=== PATIENT | female | born 2000 | race Two or more races ===

== ENCOUNTER → 2024-06-24 | Outpatient (CLI) | payer MEDICAID, SELFPAY ==
--- NOTE | 2024-06-24 15:47 | XR_ITS ---
Examination: Wrist, right 3 views Technique: Wrist AP, oblique, lateral 3 views Date and time of exam: June 24, 2024 1553 hours INDICATIONS: Acute angulated comminuted fracture distal fifth metacarpal June 02, 2024 FINDINGS: Operative reduction internal fixation fracture fifth metacarpal Partial healing with satisfactory alignment Orthopedic pin satisfactory position IMPRESSION: Partial healing fracture fifth metacarpal with satisfactory alignment
--- NOTE | 2024-06-24 15:47 | XR_ITS ---
Examination: Hand, right 3 views Technique: Hand AP, oblique, lateral 3 views Date and time of exam: June 24, 2024 1553 hours Comparison June 02, 2024 INDICATIONS: Acute angulated fracture distal fifth metacarpal June 02, 2024, postop reduction internal fixation fracture FINDINGS: Operative reduction internal fixation fracture fifth metacarpal with partial healing and stable and satisfactory alignment Orthopedic pin satisfactory position IMPRESSION: Partial healing fracture fifth metacarpal with stable and satisfactory alignment
== END | disposition home or self-care (01) ==
DX: S62.396A Other fracture of fifth metacarpal bone, right hand, initial encounter for closed fracture (principal); X58.XXXA Exposure to other specified factors, initial encounter
CPT/HCPCS: 73110; 73130

== ENCOUNTER → 2024-07-21 | Outpatient (CLI) | payer MEDICAID, SELFPAY ==
--- NOTE | 2024-07-21 | XR_ITS ---
Examination: Hand, right 3 views Technique: Hand AP, oblique, lateral 3 views Date and time of exam: July 18 20,024 0743 hours INDICATIONS: Right hand surgery one month ago. FINDINGS: Healed fracture fifth metacarpal Satisfactory position orthopedic pin IMPRESSION: Healed fracture fifth metacarpal with satisfactory alignment
--- NOTE | 2024-07-21 | XR_ITS ---
Examination: Wrist, right 3 views Technique: Wrist AP, oblique, lateral 3 views Date and time of exam: July 21, 2024 0743 hours Comparison June 24, 2024 INDICATIONS: History fracture fifth metacarpal postop reduction internal fixation FINDINGS: Healed fracture fifth metacarpal with stable and satisfactory alignment IMPRESSION: Healed fracture fifth metacarpal with stable and satisfactory alignment
== END | disposition home or self-care (01) ==
LOC: CDIM 07:29
PROVIDERS: Referring Provider Nurse Practitioner Gerontology; Visit Provider Nurse Practitioner Gerontology
DX: M79.641 Pain in right hand (principal); M25.531 Pain in right wrist; Z87.81 Personal history of (healed) traumatic fracture
CPT/HCPCS: 73110; 73130

== ENCOUNTER → 2024-08-13 | Outpatient (CLI) | payer MEDICAID, SELFPAY ==
--- NOTE | 2024-08-13 16:03 | XR_ITS ---
Examination: Hand, right 3 views Technique: Hand AP, oblique, lateral 3 views Date and time of exam: August 13, 2024 1605 hours INDICATIONS: History fifth metacarpal fracture with surgery April 2024 FINDINGS: Healed fracture fifth metacarpal with satisfactory alignment Satisfactory position orthopedic hardware Impression: Healed fracture fifth metacarpal with satisfactory alignment
== END | disposition home or self-care (01) ==
PROVIDERS: Referring Provider Nurse Practitioner Gerontology; Visit Provider Nurse Practitioner Gerontology
DX: M79.641 Pain in right hand (principal); Z87.81 Personal history of (healed) traumatic fracture
CPT/HCPCS: 73130

== ENCOUNTER 2024-08-30 12:38 | Emergency (ER) | payer MEDICAID, SELFPAY ==
[2024-08-30 12:40] VITALS: BMI 29.0
[2024-08-30 12:48] VITALS: BP 104/69; PULSE 83; RESP 18; TEMP 36.7; O2SAT 95
[2024-08-30 13:53] LABS: Bilirubin,Urine 1+ (Negative); Blood,Urine 3+ (Negative); Clarity,Urine Turbid (Clear/Hazy); Collection Type, Urine Clean Catch; Color,Urine Drk-Yellow (Lt Yel-Yel); Glucose, Urine Negative (Negative); Ketones,Urine Negative (Negative); Leukocyte Esterase,Urine Positive (Negative); Nitrite,Urine Positive (Negative); PH,Urine 6.5 (5.0-7.0); Protein,Urine 1+ (Neg - Trace); RBC,Urine 635 /hpf (0-3); Specific Gravity,Urine 1.029 (1.001-1.035); Squamous Epithelial Cell,Urine 3 /hpf (0-5); WBC,Urine 15 /hpf (0-5)
[2024-08-30 13:54] LABS: Culture Indicated,Urine Yes
--- NOTE | 2024-08-30 13:57 | EDNOTE_ITS ---
ED Female Urogenital RME/HPI General Chief complaint: Urogenital-Female Stated complaint: FREQUENT URINATION Time Seen by Provider: 08/30/24 12:42 Arrival date/time: 08/30/24 12:38 24-year-old female presents emerged department today complaints of dysuria patient reports recent last week patient reports no pelvic pain no back pain patient reports that she has a follow-up this coming week Limitations: no limitations Related Data Previous Rx's ?Medication ?Instructions ?Recorded docusate sodium 100 mg capsule 100 mg PO BID #60 caps 12/14/20 (Colace) ibuprofen 800 mg tablet 800 mg PO Q6H PRN pain #120 tabs 12/14/20 lidocaine HCl 4 % laryngotracheal 3 ml topical TID #10 0 mL 11/05/22 solution acetaminophen 300 mg-codeine 30 mg 1 tab PO Q6H PRN pa in #20 tabs 12/17/23 tablet ibuprofen 600 mg tablet 600 mg PO Q6H PRN fever or p ain 12/17/23 #30 tabs lidocaine HCl 2 % mucosal solution See Rx Instructions .Route 12/17/23 (Lidocaine Viscous) .COMPLEX #60 mL ciprofloxacin HCl 500 mg tablet 500 mg PO BID 7 days # 14 tabs 08/30/24 Allergies Allergy/AdvReac Type Severity Reaction Status Date / Time No Known Allergies Allergy Verified 08/30/24 12:40 Review of Systems Review of Systems Systems Reviewed: All systems reviewed, normal except as documented Constitutional Constitutional: Reports system reviewed and no additional complaints, except as documented, Denies fever(s) and Denies headache(s) Eyes Eyes: Reports system reviewed and no additional complaints, except as documented and Denies blurry vision ENT Ears, Nose, Mouth, and Throat: Reports system reviewed and no additional complaints, except as documented, Denies headache(s), Denies nasal congestion and Denies nasal discharge Cardiovascular Cardiovascular: Reports system reviewed and no additional complaints, except as documented, Denies chest pain and Denies dyspnea Respiratory Respiratory: Reports system reviewed and no additional complaints, except as documented, Denies chest congestion, Denies cough and Denies dyspnea Gastrointestinal Gastrointestinal: Reports system reviewed and no additional complaints, except as documented and Denies abdominal pain Genitourinary Genitourinary: Reports system reviewed and no additional complaints, except as documented, Reports dysuria and Denies flank pain Integumentary/Breasts Skin/Breast: Reports system reviewed and no additional complaints, except as documented and Denies rash Neurologic Neurologic: Reports system reviewed and no additional complaints, except as documented, Reports as per HPI and Denies headache(s) Past Medical History Past Medical History NEUROLOGIC: Negative Neurological Disorders or Seizures CARDIAC: Negative Cardiac Disorders or Congestive Heart Failure RESPIRATORY: Negative Chronic Obstructive Pulmonary Disease (COPD) or Asthma GASTROINTESTINAL: Negative Gastrointestinal Disorders or Hepatitis GENITOURINARY: Negative Genitourinary Disorders or Renal Disease REPRODUCTIVE: Positive Previous Pregnancies (MISCARRIAGE); Negative Endometriosis or Pelvic Inflammatory Disease MUSCULOSKELETAL: Positive Musculoskeletal Disorders (CARPEL TUNNEL) and Carpal Tunnel Syndrome ENDOCRINE: Negative Endocrine Disorders, Diabetes Mellitus Type 1 or Diabetes Mellitus Type 2 HEMATOLOGIC: Negative Blood Disorders or Sickle Cell Disease OTHER HISTORY: Positive Hospitalization (GALLBLADDER SURGERY); Negative Autoimmune Disease, Blood Transfusions, Anesthesia Reactions, MRSA, VRSA, Vancomycin-Resistant Enterococci, Human Immunodeficiency Virus (HIV), Chicken Pox, Measles, Mumps, Rubella (S[place]i Measles), Pertussis, Clostridium Difficile or Cancer Family History FAMILY HISTORY: Positive Family Surgery; Negative Family Psychiatric Problems, Family Respiratory Disorders, Family Cardiac Disorders, Family Gastrointestinal Problems, Family Cancer or Family Anesthesia Reaction Surgical History SURGICAL: Negative Section Social History SMOKING STATUS: Current every day smoker SECOND HAND EXPOSURE: No ED Exam General Limitations: Present no limitations General appearance: Present alert and in no apparent distress Head Head exam: Present atraumatic, normocephalic and normal inspection Eye Eye exam: Present normal appearance, PERRL and EOMI; Absent conjunctival injection ENT ENT exam: Present normal exam, normal oropharynx and mucous membranes moist Neck Neck exam: Present normal inspection, full ROM and trachea midline Chest Chest inspection: Present normal inspection and symmetric chest wall rise Respiratory Respiratory exam: Present normal lung sounds bilaterally; Absent respiratory distress Cardiovascular Cardiovascular exam: Present regular rate, normal rhythm and normal heart sounds Abdominal Exam Abdominal exam: Present soft and normal bowel sounds; Absent distention, tenderness, guarding, rebound or rigidity Extremities Exam Extremities exam: Present normal inspection and full ROM Back Exam Back exam: Present normal inspection and full ROM Neurological Exam Neurological exam: Present alert, oriented X3 and CN II-XII intact Psychiatric Psychiatric exam: Present normal affect and normal mood Skin Skin exam: Present warm, dry, intact and normal color Course Quality Measures none Orders Category Date Time Status UA, C/S IF [Urinalysis, C/S if Indicated] Stat Lab 08/30/24 13:30 Completed Urine Culture Stat Lab 08/30/24 13:30 Received Vital Signs Vital signs: Vital Signs Temperature 98.0 F 08/30/24 12:48 Pulse Rate 83 08/30/24 12:48 Respiratory Rate 18 08/30/24 12:48 Blood Pressure 104/69 08/30/24 12:48 Pulse Oximetry (%) 95 08/30/24 12:48 Oxygen Delivery Method Room Air 08/30/24 12:48 O2 saturation 95% room air within normal limits Urogenital - Female MDM Narrative MDM Narrative:: 24-year-old female presents emerged department today complaints of dysuria patient reports recent last week patient reports no pelvic pain no back pain patient reports that she has a follow-up this coming week On exam patient does not appear ill or toxic patient is afebrile reports no nausea or vomiting reports no back pain patient has no CVA tenderness Urinalysis obtained consistent with UTI patient will treat with course of antibiotics Patient is instructed to keep her appoint with her provider to perform the a bortion for worsening symptoms return immediately Patient data External records reviewed:: [facility] previous records Clinical information provided by:: patient Social determinants that could affect healthcare access:: none Patient has the following chronic illnesses:: None How is presenting disease/condition affected by chronic disease/condition?: no chronic disease Evaluation data The following diagnostics were reviewed and interpreted by me:: lab results Lab and/or radiology exams considered but not ordered:: Lab obtained Interpretation Summary: Reviewed by me Medications / Prescriptions Medications or Prescriptions considered but not ordered:: Given Medication administrations:: Given Consultations Consultation(s) initiated? (list below): No Diagnosis Urogenital Female Differential Diagnosis: urinary tract infection and cystitis Most likely diagnosis given after review of the tests above:: UTI Admission Indicated Admission indicated?: not indicated Admission Request Was there a request for admission?: No Disposition Plan Disposition Plan: Discharge Discharge Attestation Discharge Attestation: The patient and all family members were given an opportunity to ask questions and understood the discharge instructions. Discharge instructions specifically effects, indications for sooner follow up or return to the emergency department, and the expected course of current diagnosis. Patient condition: Stable Discharge Plan Plan Patient Disposition: HOME (Self Care) Disposition Comment: Stable Prescriptions/Referrals Prescriptions/Med Rec: New ciprofloxacin HCl 500 mg tablet 500 mg PO BID 7 Days Qty: 14 0RF No Action ibuprofen 800 mg tablet 800 mg PO Q6H MDD 4 PRN (Reason: pain) Qty: 120 0RF docusate sodium [Colace] 100 mg capsule 100 mg PO BID Qty: 60 0RF lidocaine HCl 4 % solution 3 ml topical TID Qty: 100 0RF ibuprofen 600 mg tablet 600 mg PO Q6H PRN (Reason: fever or pain) Qty: 30 0RF acetaminophen-codeine 300-30 mg tablet 1 tab PO Q6H PRN (Reason: pain) Qty: 20 0RF lidocaine HCl [Lidocaine Viscous] 2 % solution See Rx Instructions .ROUTE .COMPLEX Qty: 60 0RF Rx Instructions: apply topically to affected area prn mouth/throat pain Referrals: Tristin Holt MD [Primary Care Provider] - 09/01/24 Problem List Clinical Impression: UTI (urinary tract infection) Patient/Caregiver Discharge Instructions Education Materials: Understanding Urinary Tract ... Additional Instructions: Please follow up with your primary care doctor in the next 24-48hrs for any worsening symptoms return here immediately Print Language: Syriac Stand Alone Forms: Melanie Award Info., Patient Portal Info Letter PA/CARPENTRY TEACHER Supervising Physician PA/CARPENTRY TEACHER Supervising Physician: Dr Ellison
== END 2024-08-30 14:04 | disposition home or self-care (01) ==
PROVIDERS: Nurse Practitioner Primary Care; Emergency Provider Emergency Medicine; PCP Family Medicine
DX: N39.0 Urinary tract infection, site not specified (principal)
CPT/HCPCS: 81001; 81025; 87077; 87086; 87186; 99283